=== PATIENT | female | born 1995 ===

== ENCOUNTER 2023-01-26 05:00 | Inpatient (IN) | payer BC ==
[2023-01-26] MEDS ORDERED: Bupivacaine 0.25% HCL 30 ML VIAL ONE (08:00)
[2023-01-26] MEDS ORDERED: Carboprost 250 MCG/ML AMP IM PRN (20:04)
[2023-01-26] MEDS ORDERED: Methylergonovine 0.2 MG/ML VIAL IM PRN (20:04)
[2023-01-26] MEDS ORDERED: Ibuprofen 800 MG TAB PO PRN (20:04)
[2023-01-26] MEDS ORDERED: fentaNYL 50 mcg/mL 1 mL Vial SLOW IVP PRN (20:04)
[2023-01-26] MEDS ORDERED: HYDROcodone/Acetaminophen 5/325 mg Tablet PO PRN (20:04)
[2023-01-26] MEDS ORDERED: hydrALAZINE 20 MG/ML VIAL SLOW IVP PRN (20:04)
[2023-01-26] MEDS ORDERED: Acetaminophen 500 MG TAB PO PRN (20:04)
[2023-01-26] MEDS ORDERED: Zolpidem Tartrate 5 MG TAB PO PRN (20:04)
[2023-01-26] MEDS ORDERED: Diphenoxylate HCl/Atropine Tablet PO PRN (20:04)
[2023-01-26] MEDS ORDERED: Misoprostol 200 MCG TAB PR PRN (20:04)
[2023-01-26] MEDS ORDERED: Promethazine HCl 25 MG/ML VIAL IM PRN (20:04)
[2023-01-26] MEDS ORDERED: Lidocaine 1% (PF) 30 ML VIAL SC PRN (20:04)
[2023-01-26] MEDS ORDERED: Ondansetron PF 4 MG/2 ML Vial IVP PRN (20:04)
[2023-01-26] MEDS ORDERED: Oxytocin 30 units/NS 500 ML 500 ML IV SCH ×2 (20:15)
[2023-01-26 22:20] VITALS: BMI 25.5
[2023-01-26] MEDS: Lactated Ringer's 1,000 ML IV SCH (22:45)
[2023-01-26 23:17] LABS: Hematocrit 29.5 % (34.9-44.5); Hemoglobin 10.3 g/dL (12.0-15.5); Mean Corpuscular HGB CONC 34.9 g/dL (32.0-36.0); Mean Corpuscular Hemoglobin 28.5 pg (27.0-33.0); Mean Corpuscular Volume 81.7 fl (81.6-98.3); Mean Platelet Volume 12.3 fl (7.4-10.4); Platelet Count 177 10x3/uL (150-450); RBC Distribution Width 14.3 % (11.5-14.5); Red Blood Cell (RBC) Count 3.61 10x6/uL (3.90-5.03); White Blood Cell (WBC) Count 7.5 10x3/uL (3.5-10.5)
[2023-01-26] MEDS: Misoprostol 100 MCG TAB VAG SCH (23:38)
[2023-01-27 00:13] LABS: Syphilis Antibody Nonreactive (Nonreactive); Syphilis Antibody Index 0.03 S/CO (<1.00 Non-Reactive)
[2023-01-27 00:33] LABS: Hep B Surf Ag - L&D Non-Reactive S/CO (NonReactive)
[2023-01-27] MEDS: Misoprostol 100 MCG TAB VAG SCH ×6 (03:20→17:13)
[2023-01-27] MEDS: Lactated Ringer's 1,000 ML IV SCH ×2 (06:45→10:25)
[2023-01-27] MEDS ORDERED: fentaNYL/Ropivacaine Epidural 100 ML ONE (07:52)
[2023-01-27] MEDS ORDERED: Ondansetron PF 4 MG/2 ML Vial IVP PRN (10:26)
[2023-01-27] MEDS ORDERED: ePHEDrine Sulfate 50 MG/10 ML VIAL SLOW IVP PRN (10:26)
[2023-01-27] MEDS ORDERED: Lactated Ringer's 500 ML IV PRN (10:26)
[2023-01-27] MEDS ORDERED: Moisturizing Cream (Eucerin) 113 GM JAR TOP PRN (10:26)
[2023-01-27] MEDS ORDERED: Promethazine HCl 25 MG/ML VIAL IM PRN (10:26)
[2023-01-27] MEDS ORDERED: Naloxone HCl 0.4 mg/ml Vial IVP PRN ×2 (10:26)
[2023-01-27] MEDS ORDERED: diphenhydrAMINE 50 MG/ML VIAL IVP PRN (10:26)
[2023-01-27] MEDS ORDERED: fentaNYL 2 mcg/Ropivacaine 0.2% Epidural 100 ML CADD EPIDURAL SCH (10:30)
[2023-01-27] MEDS ORDERED: Communication Order-Pharmacy FS SCH (10:30)
[2023-01-27] MEDS: Acetaminophen 325 MG TAB PO PRN (17:12)
[2023-01-28] MEDS: Acetaminophen 325 MG TAB PO PRN (00:56)
[2023-01-28] MEDS ORDERED: fentaNYL 50 mcg/mL 1 mL Vial ONE (03:12)
[2023-01-28] MEDS ORDERED: hydrALAZINE 20 MG/ML VIAL SLOW IVP PRN (03:44)
[2023-01-28] MEDS ORDERED: Boostrix 0.5 ML (Tdap) VIAL (>/=7 yrs of age) IM ONE (03:44)
[2023-01-28] MEDS ORDERED: Bisacodyl 10 MG SUPP PR PRN (03:44)
[2023-01-28] MEDS ORDERED: Fentanyl 100 MCG/2 ML VIAL SLOW IVP SCH (04:00)
[2023-01-28] MEDS: Ibuprofen 800 MG TAB PO SCH ×3 (06:15→20:31)
[2023-01-28] MEDS: Ferrous Sulfate 325 MG TAB PO SCH ×2 (08:02→16:29)
[2023-01-28] MEDS: Docusate 100 MG CAP PO SCH ×2 (08:02→20:32)
[2023-01-28] MEDS: Prenatal Vitamin 1 TAB PO SCH (08:02)
[2023-01-28] MEDS ORDERED: HYDROcodone/Acetaminophen 5/325 mg Tablet PO PRN (08:28)
[2023-01-28] MEDS: HYDROcodone/Acetaminophen 5/325 mg Tablet PO PRN ×3 (08:39→20:31)
[2023-01-28] MEDS ORDERED: Benzocaine-Menthol 82.5 ML CAN TOP PRN (11:28)
[2023-01-28] MEDS: Milk Of Magnesia 30 ML UDCUP PO PRN (14:16)
[2023-01-29] MEDS: HYDROcodone/Acetaminophen 5/325 mg Tablet PO PRN ×3 (03:43→22:44)
[2023-01-29 05:29] LABS: #Eosinphils 0.1 10x3/uL (0.0-0.5); #Monocytes 1.2 10x3/uL (0.0-1.1); #Neutrophils 10.7 10x3/uL (1.5-8.4); %Basophils 0.1 % (0.0-2.0); %Eosinophils 0.8 % (0.0-6.0); %Lymphocytes 12.4 % (18.0-47.0); %Monocytes 8.8 % (0.0-10.0); %Neutrophils 77.3 % (40.0-75.0); Hematocrit 24.3 % (34.9-44.5); Hemoglobin 8.5 g/dL (12.0-15.5); Mean Corpuscular Hemoglobin 28.9 pg (27.0-33.0); Mean Corpuscular Volume 82.7 fl (81.6-98.3); Mean Platelet Volume 12.6 fl (7.4-10.4); Platelet Count 162 10x3/uL (150-450); RBC Distribution Width 14.6 % (11.5-14.5); Red Blood Cell (RBC) Count 2.94 10x6/uL (3.90-5.03); White Blood Cell (WBC) Count 13.8 10x3/uL (3.5-10.5)
[2023-01-29] MEDS: Ibuprofen 800 MG TAB PO SCH ×3 (06:17→21:23)
[2023-01-29] MEDS: Lactated Ringer's 1,000 ML IV SCH ×2 (07:25→07:26)
[2023-01-29] MEDS: Misoprostol 100 MCG TAB VAG SCH (07:26)
[2023-01-29] MEDS: Docusate 100 MG CAP PO SCH ×2 (09:36→21:23)
[2023-01-29] MEDS: Ferrous Sulfate 325 MG TAB PO SCH (09:36)
[2023-01-29] MEDS: Prenatal Vitamin 1 TAB PO SCH (09:37)
[2023-01-30] MEDS ORDERED: Simethicone Chewable 80 MG TAB PO PRN (05:07)
[2023-01-30] MEDS: Ibuprofen 800 MG TAB PO SCH (05:29)
[2023-01-30 07:50] VITALS: BP 137/86; TEMP 98
[2023-01-30] MEDS: Ferrous Sulfate 325 MG TAB PO SCH (08:38)
[2023-01-30] MEDS: Milk Of Magnesia 30 ML UDCUP PO PRN (08:38)
[2023-01-30] MEDS: Prenatal Vitamin 1 TAB PO SCH (08:38)
[2023-01-30] MEDS: Docusate 100 MG CAP PO SCH (08:38)
== END 2023-01-30 10:45 | disposition home or self-care (01) | DRG 768 ==
LOC: CSHLD 18:26 → CSHPP 01-28 06:22
PROVIDERS: ADMIT Student in an Organized Health Care Education/Training Program; ATTEND Student in an Organized Health Care Education/Training Program
PROC: 10D07Z6 Extraction of Products of Conception, Vacuum, Via Natural or Artificial Opening (ICD-10-PCS; principal; 2023-01-28)
PROC: 0DQR0ZZ Repair Anal Sphincter, Open Approach (ICD-10-PCS; 2023-01-28)
PROC: 3E0P7VZ Introduction of Hormone into Female Reproductive, Via Natural or Artificial Opening (ICD-10-PCS; 2023-01-28)
DX: O75.81 Maternal exhaustion complicating labor and delivery (principal); Z37.0 Single live birth; D62 Acute posthemorrhagic anemia; O70.20 Third degree perineal laceration during delivery, unspecified; Z3A.39 39 weeks gestation of pregnancy; O76 Abnormality in fetal heart rate and rhythm complicating labor and delivery
CPT/HCPCS: 36415; 36416; 51702; 85025; 85027; 86780; 86850; 86900; 86901; 87340; J2590; J3010; J7120; S0020

== ENCOUNTER 2023-02-03 14:31 | Inpatient (IN) | payer BC ==
[~2023-02-03 14:31] MED LIST: Meropenem 1 GM in Sodium Chloride 0.9% 100 ML IVPB SCH
[2023-02-03 15:24] LABS: #Basophils 0.1 10x3/uL (0.0-0.2); #Eosinphils 0.1 10x3/uL (0.0-0.5); #Monocytes 0.7 10x3/uL (0.0-1.1); #Neutrophils 5.9 10x3/uL (1.5-8.4); %Basophils 0.7 % (0.0-2.0); %Eosinophils 1.5 % (0.0-6.0); %Lymphocytes 17.6 % (18.0-47.0); %Monocytes 8.7 % (0.0-10.0); %Neutrophils 69.4 % (40.0-75.0); Hematocrit 31.5 % (34.9-44.5); Hemoglobin 10.6 g/dL (12.0-15.5); Mean Corpuscular HGB CONC 33.7 g/dL (32.0-36.0); Mean Corpuscular Hemoglobin 27.9 pg (27.0-33.0); Mean Corpuscular Volume 82.9 fl (81.6-98.3); Mean Platelet Volume 10.3 fl (7.4-10.4); Platelet Count 377 10x3/uL (150-450); RBC Distribution Width 14.2 % (11.5-14.5); White Blood Cell (WBC) Count 8.5 10x3/uL (3.5-10.5)
[2023-02-03] MEDS ORDERED: fentaNYL 50 mcg/mL 1 mL Vial ONE ×2 (15:46→17:30)
[2023-02-03 15:51] LABS: ALT (SGPT) 21 U/L (8-55); AST (SGOT) 17 U/L (5-34); Albumin 3.9 g/dL (3.5-5.0); Alkaline Phosphatase 119 U/L (40-110); Anion Gap 15 mmol/L (10-20); BUN (Urea Nitrogen) 15 mg/dL (7.0-18.7); Bilirubin, Total 0.5 mg/dL (0.2-1.2); Calc. Creatinine Clearance 0 mL/min (70-130); Calcium 9.1 mg/dL (7.8-10.44); Carbon Dioxide 22 mmol/L (22-29); Chloride 107 mmol/L (98-107); Estimated GFR 126; Globulin 3.3 g/dL (2.4-3.5); Glucose 86 mg/dL (70-105); Potassium 4.2 mmol/L (3.5-5.1); Protein, Total 7.2 g/dL (6.0-8.3); Sodium 140 mmol/L (136-145)
[2023-02-03] MEDS ORDERED: Midazolam HCl 2 mg/2 ml Vial ONE (15:59)
[2023-02-03] MEDS ORDERED: ceFOXitin 1 GM VIAL ONE (16:14)
[2023-02-03] MEDS ORDERED: Promethazine HCl 25 MG/ML VIAL IM PRN (17:00)
[2023-02-03] MEDS ORDERED: Zolpidem Tartrate 5 MG TAB PO PRN (17:00)
[2023-02-03] MEDS ORDERED: Simethicone Chewable 80 MG TAB PO PRN (17:00)
[2023-02-03] MEDS ORDERED: diphenhydrAMINE 25 MG CAP PO PRN (17:00)
[2023-02-03] MEDS ORDERED: Ondansetron PF 4 MG/2 ML Vial IVP PRN (17:00)
[2023-02-03] MEDS ORDERED: Fentanyl 100 MCG/2 ML VIAL SLOW IVP PRN (17:00)
[2023-02-03] MEDS ORDERED: Ondansetron PF 4 MG/2 ML Vial ONE (17:20)
[2023-02-03] MEDS ORDERED: Meropenem 1 GM in Sodium Chloride 0.9% 100 ML IVPB SCH ×2 (20:00→22:00)
[2023-02-03 20:57] VITALS: BMI 29.0
[2023-02-03] MEDS: HYDROcodone/Acetaminophen 10/325 mg Tablet PO PRN (21:13)
[2023-02-03] MEDS: Ibuprofen 800 MG TAB PO SCH (22:37)
[2023-02-03] MEDS: Lactated Ringer's 1,000 ML IV SCH (22:38)
[2023-02-04] MEDS: Meropenem 1 GM in Sodium Chloride 0.9% 100 ML IVPB SCH ×3 (04:23→20:15)
[2023-02-04] MEDS: HYDROcodone/Acetaminophen 10/325 mg Tablet PO PRN ×2 (04:51→20:09)
[2023-02-04 04:58] LABS: Hematocrit 29.4 % (34.9-44.5); Hemoglobin 9.9 g/dL (12.0-15.5); Mean Corpuscular HGB CONC 33.7 g/dL (32.0-36.0); Mean Corpuscular Hemoglobin 27.8 pg (27.0-33.0); Mean Corpuscular Volume 82.6 fl (81.6-98.3); Mean Platelet Volume 10.3 fl (7.4-10.4); Platelet Count 358 10x3/uL (150-450); RBC Distribution Width 14.2 % (11.5-14.5); Red Blood Cell (RBC) Count 3.56 10x6/uL (3.90-5.03); White Blood Cell (WBC) Count 7.5 10x3/uL (3.5-10.5)
[2023-02-04] MEDS: Ibuprofen 800 MG TAB PO SCH ×2 (05:00→14:38)
[2023-02-04] MEDS: Lactated Ringer's 1,000 ML IV SCH ×2 (08:10)
[2023-02-04] MEDS ORDERED: Docusate 100 MG CAP PO SCH (09:00)
[2023-02-04] MEDS: fentaNYL 50 mcg/mL 1 mL Vial SLOW IVP PRN (10:14)
[2023-02-04] MEDS ORDERED: Artificial Tear Sol 15 ML BOT EA EYE PRN (14:10)
[2023-02-04] MEDS ORDERED: Ibuprofen 200 MG TAB PO SCH (14:45)
[2023-02-04] MEDS: Ibuprofen 200 MG TAB PO SCH (23:02)
[2023-02-05 04:44] LABS: Mean Corpuscular HGB CONC 33.3 g/dL (32.0-36.0); Mean Corpuscular Hemoglobin 27.5 pg (27.0-33.0); Mean Corpuscular Volume 82.4 fl (81.6-98.3); Platelet Count 388 10x3/uL (150-450); Red Blood Cell (RBC) Count 3.64 10x6/uL (3.90-5.03); White Blood Cell (WBC) Count 6.5 10x3/uL (3.5-10.5)
[2023-02-05] MEDS: Meropenem 1 GM in Sodium Chloride 0.9% 100 ML IVPB SCH ×3 (04:57→20:31)
[2023-02-05] MEDS: Ibuprofen 200 MG TAB PO SCH ×2 (05:03→13:54)
[2023-02-05] MEDS ORDERED: Docusate 100 MG CAP PO PRN (07:21)
[2023-02-05] MEDS: fentaNYL 50 mcg/mL 1 mL Vial SLOW IVP PRN (12:21)
[2023-02-05] MEDS: HYDROcodone/Acetaminophen 10/325 mg Tablet PO PRN (18:49)
[2023-02-05] MEDS: Lidocaine 2% 6 ML (Jelly) SYR TOP PRN (20:32)
[2023-02-05] MEDS ORDERED: Ibuprofen 800 MG TAB PO SCH (23:15)
[2023-02-06] MEDS: Meropenem 1 GM in Sodium Chloride 0.9% 100 ML IVPB SCH ×3 (03:53→20:24)
[2023-02-06] MEDS: Ibuprofen 800 MG TAB PO SCH ×4 (05:04→23:54)
[2023-02-06] MEDS: HYDROcodone/Acetaminophen 10/325 mg Tablet PO PRN ×3 (05:05→18:38)
[2023-02-06] MEDS: Ibuprofen 200 MG TAB PO SCH (08:37)
[2023-02-06] MEDS: Docusate 100 MG CAP PO SCH ×2 (09:39→20:24)
[2023-02-06] MEDS: Lidocaine 4% Topical Sol 50 ML BOT TOP PRN (11:22)
[2023-02-07] MEDS: Meropenem 1 GM in Sodium Chloride 0.9% 100 ML IVPB SCH ×3 (03:31→20:31)
[2023-02-07] MEDS: Ibuprofen 800 MG TAB PO SCH ×3 (09:06→23:43)
[2023-02-07] MEDS: Docusate 100 MG CAP PO SCH ×2 (09:07→20:33)
[2023-02-07] MEDS: HYDROcodone/Acetaminophen 10/325 mg Tablet PO PRN ×2 (09:15→20:36)
[2023-02-08] MEDS: Lidocaine 4% Topical Sol 50 ML BOT TOP PRN (00:50)
[2023-02-08] MEDS: Meropenem 1 GM in Sodium Chloride 0.9% 100 ML IVPB SCH ×2 (04:10→13:54)
[2023-02-08] MEDS: Ibuprofen 800 MG TAB PO SCH ×2 (08:02→16:46)
[2023-02-08] MEDS: HYDROcodone/Acetaminophen 10/325 mg Tablet PO PRN ×3 (08:03→20:55)
[2023-02-08] MEDS ORDERED: Lactated Ringer's 1,000 ML IV SCH (08:30)
[2023-02-08] MEDS: Docusate 100 MG CAP PO SCH ×2 (08:50→20:54)
[2023-02-08] MEDS ORDERED: SUCCINYLCHOLINE/SOD CL,ISO/PF 200 MG/10 ML SYRINGE FS ONE (13:27)
[2023-02-08] MEDS ORDERED: Ketorolac Tromethamine 30 MG (1 mL) VIAL ONE (13:27)
[2023-02-08] MEDS ORDERED: Rocuronium Bromide 10 MG/ML (10ML VIAL) ONE (13:27)
[2023-02-08] MEDS ORDERED: fentaNYL 50 mcg/mL 1 mL Vial ONE ×4 (13:27→14:50)
[2023-02-08] MEDS ORDERED: Lidocaine 2% PF 5 ML VIAL ONE ×2 (13:27)
[2023-02-08] MEDS ORDERED: PROPOFOL 20 ML ONE (13:27)
[2023-02-08] MEDS ORDERED: Dexamethasone 4 mg/ml Vial ONE (13:28)
[2023-02-08] MEDS ORDERED: Ondansetron PF 4 MG/2 ML Vial ONE (13:28)
[2023-02-08] MEDS ORDERED: Midazolam HCl 2 mg/2 ml Vial ONE ×2 (13:33→15:30)
[2023-02-08] MEDS ORDERED: Glycopyrrolate 0.2 MG/ML 5 ML SYRINGE ONE (14:07)
[2023-02-08] MEDS ORDERED: HYDROmorphone 0.5 MG/0.5 ML SYRINGE ONE ×2 (14:57→15:14)
[2023-02-08] MEDS: Lidocaine 2% 6 ML (Jelly) SYR TOP PRN (20:44)
[2023-02-09] MEDS: Ibuprofen 800 MG TAB PO SCH ×4 (00:23→23:25)
[2023-02-09] MEDS: Lidocaine 2% 6 ML (Jelly) SYR TOP PRN ×2 (05:13→21:47)
[2023-02-09] MEDS: HYDROcodone/Acetaminophen 10/325 mg Tablet PO PRN ×2 (05:15→12:26)
[2023-02-09] MEDS: Docusate 100 MG CAP PO SCH ×4 (07:49→21:48)
[2023-02-09] MEDS ORDERED: Benzocaine-Menthol 82.5 ML CAN TOP PRN (08:22)
[2023-02-09] MEDS ORDERED: Polyethylene Glycol 3350 17 GM Packet PO SCH (12:00)
[2023-02-09] MEDS ORDERED: Milk Of Magnesia 30 ML UDCUP PO SCH (17:00)
[2023-02-10] MEDS: Docusate 100 MG CAP PO SCH ×2 (08:38→21:11)
[2023-02-10] MEDS: Ibuprofen 800 MG TAB PO SCH ×3 (08:38→23:56)
[2023-02-10] MEDS ORDERED: Polyethylene Glycol 3350 17 GM Packet PO PRN (11:05)
[2023-02-10] MEDS ORDERED: Milk Of Magnesia 30 ML UDCUP PO PRN (11:05)
[2023-02-10] MEDS ORDERED: Lactulose 20 GM (30 mL) UDCUP PO SCH (14:15)
[2023-02-11] MEDS: Ibuprofen 800 MG TAB PO SCH (08:22)
[2023-02-11] MEDS: Docusate 100 MG CAP PO SCH (08:23)
[2023-02-11] MEDS: HYDROcodone/Acetaminophen 10/325 mg Tablet PO PRN (09:17)
[2023-02-11 11:05] VITALS: BP 124/77; TEMP 98.1
== END 2023-02-11 11:15 | disposition home or self-care (01) | DRG 769 ==
LOC: CSHSDC/OP 14:31 → CSHTELE 17:00 → CSHPED 02-05 15:08 → CSHPP 02-08 14:04
PROVIDERS: ADMIT Student in an Organized Health Care Education/Training Program; ATTEND Student in an Organized Health Care Education/Training Program
PROC: 0JBB0ZZ Excision of Perineum Subcutaneous Tissue and Fascia, Open Approach (ICD-10-PCS; 2023-02-04)
PROC: 0KDM0ZZ Extraction of Perineum Muscle, Open Approach (ICD-10-PCS; 2023-02-04)
PROC: 0DQR0ZZ Repair Anal Sphincter, Open Approach (ICD-10-PCS; principal; 2023-02-08)
DX: O90.1 Disruption of perineal obstetric wound (principal); O70.20 Third degree perineal laceration during delivery, unspecified; N82.3 Fistula of vagina to large intestine; O90.89 Other complications of the puerperium, not elsewhere classified; R19.7 Diarrhea, unspecified
CPT/HCPCS: 36415; 80053; 85025; 85027; 86850; 86900; 86901; 97139; J0694; J1100; J1170; J1885; J2001; J2185; J2250; J2405; J2704; J3010; J3490; J7120; Q9968